=== PATIENT | male | born 1985 | race Caucasian/White ===

== ENCOUNTER 2016-10-17 12:25 | Observation (INO) ==
--- NOTE | 2016-10-17 13:17 | Emergency Department Note ---
Arrival - Arrival Chief Complaint: Abscess Stated Complaint: STAPH, MRSA, BOIL ON STOMACH ED Nursing Triage Note: C/o abscess to right lower abd-onset one week ago. Mode of Arrival: Ambulatory Limitations: No Limitations Source: Patient, RN Notes Reviewed - History of Present Illness HPI Narrative: Patient is a 31-year-old white male who is seen today with an abscess in the right lower quadrant. This is been present for about 1 week. Patient now has a new adjacent smaller abscess of the subcutaneous area which began today. Patient denies chills or fever. He denies nausea vomiting. His last oral intake was this morning about 8 AM. Onset (ago): week(s) (1) Consistency: constant Severity: moderate Allergies/Adverse Reactions: Allergies Allergy/AdvReac Type Severity Reaction Status Date / Time No Known Allergies Allergy Verified 10/17/16 12:29 Home Medications: Home Medications Medication Instructions Recorded Confirmed Type No Known Home Medications [No 10/17/16 10/17/16 History Known Home Medications] Review of System - Review of System 12 point system: reviewed and no additional remarkable complaints except as stated - Review of System Constitutional: Absent: chills, fever Gastrointestinal: Present: abdominal pain. Absent: nausea, vomiting Medical,Surgical,& Family Hx - Medical History Medical History: noncontributory - Social History Smoking Status: Current every day smoker Frequency of Alcohol Use: None Type of Drug Use: Marijuana Exam Vital Signs: Vital Signs Temperature 98.3 F 10/17/16 12:28 Pulse Rate 136 H 10/17/16 12:28 Respiratory Rate 16 10/17/16 12:28 Blood Pressure 124/93 10/17/16 12:28 O2 Sat by Pulse Oximetry 98 10/17/16 12:28 GENERAL: This is a well-nourished well-developed white male, thin in no apparent distress. VITAL SIGNS: Reviewed HEENT: Head is atraumatic and normocephalic. Pupils are equal round react to light. Extraocular movements are intact. Oropharynx is benign with moist mucous membranes. NECK: Neck is soft and supple without tenderness. There are no masses. There is no lymphadenopathy. LUNGS: Lungs are clear to auscultation. Chest rises symmetrically. There is no chest wall tenderness. CV: Heart is regular rate and rhythm without murmurs rubs or gallops. ABDOMEN: Abdomen is soft, tender to palpation the right lower quadrant. Patient has subcutaneous abscess with adjacent smaller absces. There are no abdominal abnormal masses palpated. There is no organomegaly. Bowel sounds are present and active. SKIN: Skin is warm and dry. EXTREMITIES: Patient has full range of motion without tenderness. There is no pedal edema. NEUROLOGIC: Awake alert and oriented 4. Cranial nerves II through XII are grossly intact. Motor is 5 over 5 in all extremities bilaterally. Course - Consultations Consultation #1: Discussed with Dr. Zuleta. Patient will be seen in the emergency department. Time: 13:17 Disposition Clinical Impression: Abdominal wall abscess Case discussed with: patient
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
[2016-10-17] MEDS ORDERED: ONDANSETRON 4 MG/2 ML VIAL IV PRN (13:35)
[2016-10-17] MEDS ORDERED: ACETAMINOPHEN 325 MG TABLET PO PRN (13:35)
[2016-10-17] MEDS ORDERED: HYDROmorphone 2 MG/1 ML VIAL IV PRN (13:35)
[2016-10-17 13:43] LABS: Basophils % 0.6 % (0.0-0.8); Eosinophils # 0.5 10*3/uL (0.0-0.87); Hematocrit 43.4 VOL% (42.0-52.0); Hemoglobin 15.2 GM/DL (14.0-18.0); Immature Granulocytes % 0.2 %; Immature Granulocytes Absolute 0.01 #; Lymphocytes # 2.1 10*3/uL (1.4-4.0); Lymphocytes % 33.3 % (21.2-54.2); Mean Corpuscular Hemoglobin 30 PG (27-34); Mean Corpuscular Volume 86.1 FL (87-102); Mean Platelet Volume 11.7 FL (9.6-12.0); Monocytes # 0.5 10*3/uL (0.11-0.8); Monocytes % 8.6 % (1.7-12.7); Neutrophils % 49.3 % (38.7-73.9); Platelet Count 89 T/CUMM (130-400); Red Blood Count 5.04 MC/CUMM (3.8-5.5); Red Cell Distribution Width 12.2 % (9.3-17.3); White Blood Count 6.2 T/CUMM (4-12)
--- NOTE | 2016-10-17 13:55 | XRay Report ---
Portable chest Date: 10/17/2016 Clinical history: Respiratory preoperative evaluation, abscess of abdominal wall Comparison: 03/14/2008 Technique: Portable AP sitting chest Findings: The heart is normal in size. The lungs are clear with unremarkable mediastinum. No acute osseous findings. Impression: No acute cardiopulmonary pathology identified. PROCEDURE INTERPRETED AT [facility] DEPARTMENT OF RADIOLOGY Final Report Signed by: Dr. Ashlee Valencia
[2016-10-17] MEDS ORDERED: PIPERACILLIN/TAZOBACTAM 3,375 MG VIAL IV ONE (13:58)
[2016-10-17 14:14] LABS: Calcium 8.5 MG/DL (8.5-10.1); Osmolality,Calculated 278.4 MOS/KG (273-304); Potassium 3.8 MMOL/L (3.5-5.1)
[2016-10-17] MEDS ORDERED: METOCLOPRAMIDE 10 MG/2 ML VIAL IV STA (15:40)
[2016-10-17] MEDS ORDERED: FAMOTIDINE 20 MG/2 ML VIAL IV STA (15:40)
[2016-10-17] MEDS ORDERED: FAMOTIDINE 20 MG/2 ML VIAL IV ONE (15:42)
[2016-10-17] MEDS ORDERED: BUPIVACAINE MPF 0.25% /EPI 30 ML VIAL ONE (16:55)
[2016-10-17] MEDS ORDERED: ONDANSETRON 4 MG/2 ML VIAL ONE (17:01)
[2016-10-17] MEDS ORDERED: PROPOFOL 200 MG/20 ML VIAL IV ONE (17:01)
[2016-10-17] MEDS ORDERED: KETOROLAC 30 MG/1 ML VIAL ONE (17:01)
[2016-10-17] MEDS ORDERED: LIDOCAINE 1% 5 ML VIAL ONE (17:01)
--- NOTE | 2016-10-17 17:48 | Anesthesia Post-Op ---
Anesthesia Post OP - Post Ansesthetic Evaluation Patient seen in post op: Yes Resp: within normal limits CV: within normal limits Mental: within normal limits Temp: within normal limits [id number]: within normal limits Nausea and Vomiting: within normal limits Pain: within normal limits
--- NOTE | 2016-10-17 17:48 | Operative Note ---
Date of procedure: 10/17/16 Pre-op diagnosis: Abscesses abdominal wall right lower quadrant Post-op diagnosis: same Procedure: Operative note: Preoperative diagnosis: Masses right lower quadrant abdominal wall probably secondary to abscesses Postop diagnosis: Same Procedure: Excision of masses and extensive debridement of subcutaneous tissue right lower quadrant abdominal wall [address] Zuleta Anesthesia was managed as a care with local Brief history: 31-year-old white male who for 7 days has had an increasing enlarging mass in the right lower quadrant area that ruptured and drained some last night. He now has necrotic wound in this lower part of his abdomen with a new area just above it of unknown etiology. They appear to be abscesses and will bring him here for surgery for further debridement. Procedure: With patient in supine position prepped and draped in a sterile fashion timeout and antibiotics completed approaches area the masses themselves. The larger lower wound measures 2.5 x 1.5 cm with necrotic tissue over the surface of it. The wound in the upper part measures 0.8 x 0.8 cm with a raised central whitish area. With that completed then I infiltrated around with local anesthetic and made an elliptical incision around the larger wound in the lower part of the abdomen excising the necrotic tissue as well as a deep granulating tissue that is in this base. I sent this for pathology took some swabs of the base and then debrided the risks of necrotic tissue out and send it for cultures. We debrided to subcutaneous tissue as well as the skin around the edges of it with a knife and scissors get a good clean wound bed. We now have a wound that is open and is 2 x 1.5 x 1 cm in size. With that completed and I moved up to the upper wound and stuff made elliptical incision around the base of it excised the entire wound and mass out of this abdominal wall getting down to the deep tissue and debriding that deep subcutaneous tissue with the scissors to clean that base. When I finished and I have a wound that is 1 x 1 x 0.5 cm. With that cleaned a use light cauterization and irrigated the wound bed. At this point I felt it simple to leave the wounds open so we packed with some iodoform gauze along with a bulky dressing took patient recovery room. Estimated blood loss about 5 cc Sponge count correct 2 Drains none Complications none Condition stable Anesthesia: MAC, local (0.25% Marcaine with epinephrine mixed [id number] 1% Xylocaine plain) Surgeon / Physician: Dominic Zuleta Estimated blood loss: other (5 cc) Specimens: other (Tissue for pathology and culture) Condition: stable Disposition: floor Results - Labs CBC & BMP: 10/17/16 13:34 10/17/16 13:34 Discharge Plan - Discharge Medications No Action No Known Home Medications [No Known Home Medications] - Follow Up or Referral - Forms/Instructions
[2016-10-17] MEDS ORDERED: MIDAZOLAM 2 MG/2 ML VIAL ONE (17:54)
[2016-10-17] MEDS ORDERED: fentaNYL 100 MCG/2 ML VIAL ONE (17:54)
[2016-10-17] MEDS: DEXTROSE 5% NACL 0.45% 1,000 ML IV SCH (18:22)
[2016-10-17] MEDS: PIPERACILLIN/TAZOBACTAM 3,375 MG in SODIUM CHLORIDE 0.9% 100 ML IV SCH ×2 (21:00→21:12)
[2016-10-17] MEDS: DOCUSATE SODIUM 100 MG CAPSULE PO SCH (21:01)
[2016-10-18] MEDS: PIPERACILLIN/TAZOBACTAM 3,375 MG in SODIUM CHLORIDE 0.9% 100 ML IV SCH (06:30)
[2016-10-18] MEDS: DEXTROSE 5% NACL 0.45% 1,000 ML IV SCH (07:38)
[2016-10-18 07:39] LABS: Basophils % 0.6 % (0.0-0.8); Eosinophils # 0.4 10*3/uL (0.0-0.87); Eosinophils % 8.1 % (0.00-10.9); Hematocrit 38.1 VOL% (42.0-52.0); Immature Granulocytes % 0.2 %; Immature Granulocytes Absolute 0.01 #; Lymphocytes # 1.6 10*3/uL (1.4-4.0); Lymphocytes % 30.2 % (21.2-54.2); Mean Corpuscular HGB Conc 34.1 GM/DL (32-36); Mean Corpuscular Hemoglobin 30 PG (27-34); Mean Corpuscular Volume 87.4 FL (87-102); Mean Platelet Volume 11.7 FL (9.6-12.0); Monocytes # 0.5 10*3/uL (0.11-0.8); Monocytes % 9.4 % (1.7-12.7); Neutrophils # 2.8 10*3/uL (1.4-7.4); Neutrophils % 51.5 % (38.7-73.9); Platelet Count 144 T/CUMM (130-400); Red Blood Count 4.36 MC/CUMM (3.8-5.5); Red Cell Distribution Width 12.3 % (9.3-17.3); White Blood Count 5.4 T/CUMM (4-12)
--- NOTE | 2016-10-18 07:59 | Discharge Summary ---
Hospital Course - Hospital Course Hospital Course: Discharge summary: Discharge diagnosis: Abscess wounds of the right lower quadrant etiology unknown possible insect bite Procedure: Excisional debridement and drainage of abscesses right lower quadrant abdominal wall Brief summary: 31-year-old white male who presented to the emergency room with a 7 day history of swelling in the right lower quadrant. Had 2 wounds 1 with a large necrotic area that apparently had drains the day before. He had a second wound just above that area that was also swollen and indurated. Like to go ahead and take him to surgery at which time we were able to debride these wounds to get him cleaned up to a good clean base at this time. Difficult to know if these look like these could be related to an insect bite of some sort. We started local wound care to him and he should tolerate this well. I think with the good support he has he should be able to go home with daily wound care with bacitracin on him and to follow-up with us in a couple weeks. We will keep him on 2 antibiotics at this time Bactrim and Augmentin as we do not have a final sensitivity on these cultures at this time. Mother pointed out that he has some shotty nodes in the posterior part of his neck bilaterally that are nontender and soft and smooth and I think this is probably reactive in nature and will just watch him for right now. - Time spent with patient Time with patient DS: Less than 30 minutes Diagnosis - Discharge Diagnosis (1) Abdominal wall abscess Status: Chronic Specialty Discharge - Follow Up or Referrals Follow up with: Dominic Zuleta MD [Physician] - 2 Weeks - Speciality Discharge Instructions Surgery Instructions: 1. Good daily care to the wounds. 2. Change the dressing more often as needed if gets hot and sweaty. 3. Never leave the wound open to air. 4. Complete antibiotic Discharge Plan - Discharge Data Disposition: Disch To Home/Self Care Condition at Discharge: Stable Discharge Diet: advance to your usual diet Activity: increase activity as tolerated Hygiene: may shower Weight Bearing at Discharge: full weight bearing Driving: no restrictions Contact your physician if you experience:: fever over 101, Redness or swelling, Bleeding, pain uncontrolled by pain medications Wound / Dressing Care Instructions: Abdominal wounds daily care and as needed if the dressing gets dirty. 1. Shower and wash wounds with Hibiclens. 2. Apply bacitracin ointment to the wounds. 3. Cover with a phone dressing or large Band-Aids - Discharge Medications New Amoxicillin/Clav Tab [Augmentin Tab] 500 mg PO TID #21 tablet Bacitracin Oint 1 applic TOP BID #30 gm Chlorhexidine 4% Soln [Hibiclens] 1 applic TOP DAILY #118 ml Sulfameth/Trimeth 800-160 Tab [Bactrim DS Tab] 1 tablet PO BID #14 tablet Acetaminophen Tab [Tylenol Tab] 650 mg PO Q6H PRN #0 tablet PRN Reason: Pain Mild (1-3) And/Or Fever - Follow Up or Referral - Forms/Instructions Exam - Constitutional Vitals: Period Temp Pulse Resp BP Sys/Berrios Pulse Ox Last 24 Hr 97.8 F-98.3 F 53-136 13-20 81-124/37-93 92-100 General appearance: no acute distress - Head Head exam: Present: normal inspection - ENT ENT exam: Present: normal exam - Neck Neck exam: Present: lymphadenopathy (Bilateral posterior neck soft and pliable with no tenderness) - Respiratory Respiratory exam: Present: clear to auscultation bilaterally - Cardiovascular Cardiovascular exam: Present: regular rate and rhythm - GI/Abdominal GI/Abdominal exam: Present: hypoactive bowel sounds, soft, other (Wounds in the right lower quadrant fairly clean with packing in place no erythematous changes) - Extremities Exam Extremities exam: Present: normal inspection - Back Exam Back exam: Present: normal inspection - Neurological Exam Neurological exam: Present: alert, CN II-XII intact - Psychiatric Psychiatric exam: Present: normal affect, normal mood - Skin Skin exam: Present: normal color, warm, dry Discharge Results Procedures and tests throughout hospitalization: Pending Orders 10/17/16 Abscess Culture Routine Anaerobic Culture Routine Tissue (Biopsy) Culture and GS Routine 10/18/16 04:59 Basic Metabolic Panel IN AM Comp Blood Count Auto Diff IN AM Labs on day of discharge: Labs from last 24 hours 10/18/16 10/17/16 10/17/16 04:59 13:34 13:34 WBC 5.4 6.2 RBC 4.36 5.04 Hgb 13.0 L D 15.2 Hct 38.1 L 43.4 MCV 87.4 86.1 L MCH 30 30 MCHC 34.1 35.0 RDW 12.3 12.2 Plt Count 144 D 89 L MPV 11.7 11.7 Neut % (Auto) 51.5 49.3 Lymph % (Auto) 30.2 33.3 [place] % (Auto) 9.4 8.6 Eos % (Auto) 8.1 8.0 Baso % (Auto) 0.6 0.6 Neut # (Auto) 2.8 3.0 Lymph # (Auto) 1.6 2.1 [place] # (Auto) 0.5 0.5 Eos # (Auto) 0.4 0.5 Baso # (Auto) 0.0 0.0 Total Counted Pending Immature Gran % 0.2 0.2 Nucleated RBC % 0.0 0.0 Immature Gran # 0.01 0.01 Nucleated RBCs # 0.00 0.00 Sodium 140 Potassium 3.8 Chloride 107 Carbon Dioxide 26 Anion Gap 10.8 BUN 13 Creatinine 1.10 GFR Calculation 91 BUN/Creatinine Ratio 11.00 Glucose 107 H Calculated Osmolality 278.4 Calcium 8.5 DS: Provider Consults: 10/17/16 13:39 Consult to Wound Care - [place] [CONS] Routine Reason for Wound Care: Wound Care Management Consult Comment: abscess right abdominal wall 10/17/16 19:45 Consult to Dietitian [CONS] Routine Reason for Dietitian: Other Discharging clinician: Dominic Zuleta MD Expected date of discharge: 10/18/16
[2016-10-18 08:04] VITALS: BP 108/68
[2016-10-18 08:05] LABS: Band Neutrophils 2 % (0-10); Eosinophils 3 % (0-10); Hypochromasia Slight; Lymphocytes 17 % (20-55); Platelet Estimate Adequate; Segmented Neutrophils 61 % (50-85); Total Cells Counted 100
[2016-10-18 08:10] LABS: Calcium 7.7 MG/DL (8.5-10.1); Potassium 3.7 MMOL/L (3.5-5.1)
[2016-10-18] MEDS ORDERED: PANTOPRAZOLE 40 MG TABLET PO SCH (09:00)
[2016-10-18] MEDS: DOCUSATE SODIUM 100 MG CAPSULE PO SCH (09:08)
== END 2016-10-18 10:15 | disposition home or self-care (01) ==
LOC: N.ED 12:25 → N.SDSINP 12:25 → N.ED 14:15 → N.SDSINP 14:22 → UNDODEPER 15:15 → N.3E 15:15 → N.ED 10-18 10:15 → N.3E 10-18 14:44
PROVIDERS: ADMIT Specialist; ATTEND Specialist

== ENCOUNTER 2018-05-07 15:22 | Inpatient (IN) ==
[2018-05-07] MEDS ORDERED: methylPREDNISolone SOD SUC 125 MG/2 ML VIAL IV STA (15:41)
[2018-05-07] MEDS ORDERED: cefTRIAXone 1,000 MG in SODIUM CHLORIDE 0.9% 100 ML IV STA (15:41)
[2018-05-07] MEDS ORDERED: AZITHROMYCIN INJ 500 MG in SODIUM CHLORIDE 0.9% 250 ML IV STA (15:41)
[2018-05-07] MEDS ORDERED: ALBUTEROL/IPRATROPIUM 3 ML NEB RESP TX STA (15:41)
[2018-05-07] MEDS ORDERED: ONDANSETRON 4 MG/2 ML VIAL IV STA (15:41)
[2018-05-07] MEDS ORDERED: SULFAMETHOX/TRIMETHOPRIM 800-160 MG TABLET PO STA (15:44)
[2018-05-07] MEDS ORDERED: ACETAMINOPHEN 500 MG TABLET PO STA (15:48)
[2018-05-07 16:30] LABS: Basophils % 0.2 % (0.0-0.8); Eosinophils % 0.1 % (0.00-10.9); Hematocrit 38.7 VOL% (42.0-52.0); Hemoglobin 13.1 GM/DL (14.0-18.0); Immature Granulocytes % 0.4 %; Immature Granulocytes Absolute 0.05 #; Lymphocytes # 1.6 10*3/uL (1.4-4.0); Lymphocytes % 11.7 % (21.2-54.2); Mean Corpuscular HGB Conc 33.9 GM/DL (32-36); Mean Corpuscular Hemoglobin 29 PG (27-34); Mean Corpuscular Volume 85.4 FL (87-102); Mean Platelet Volume 11.1 FL (9.6-12.0); Monocytes # 1.4 10*3/uL (0.11-0.8); Monocytes % 9.9 % (1.7-12.7); Neutrophils # 10.6 10*3/uL (1.4-7.4); Neutrophils % 77.7 % (38.7-73.9); Platelet Count 207 T/CUMM (130-400); Red Blood Count 4.53 MC/CUMM (3.8-5.5); Red Cell Distribution Width 13.1 % (9.3-17.3); White Blood Count 13.7 T/CUMM (4-12)
[2018-05-07 16:44] LABS: PT Patient Result 10.6 SECS; Partial Thromboplastin Time 30.9 SECS (0-40)
[2018-05-07 16:53] LABS: Alanine Aminotransferase 47 U/L (16-61); Albumin 2.7 G/DL (3.4-5.0); Alkaline Phosphatase 87 U/L (45-117); Aspartate Amino Transferase 27 U/L (0-37); Blood Urea Nitrogen 11 MG/DL (7-18); Calcium 7.9 MG/DL (8.5-10.1); Glucose 113 MG/DL (74-106); Osmolality,Calculated 267.2 MOS/KG (273-304); Potassium 3.6 MMOL/L (3.5-5.1); Sodium 134 MMOL/L (136-145); Total Protein 7.8 G/DL (6.4-8.3); Troponin I < 0.015 NG/ML (0.00-0.045)
[2018-05-07] MEDS ORDERED: ONDANSETRON 4 MG/2 ML VIAL IV PRN (17:24)
[2018-05-07] MEDS ORDERED: guaiFENesin/CODEINE 5 ML LIQUID PO PRN (17:24)
[2018-05-07] MEDS ORDERED: ALBUTEROL 2.5 MG/3 ML NEB RESP TX PRN (17:24)
[2018-05-07 18:52] LABS: Apearance,Urine CLEAR (Clear); Bilirubin,Urine Negative (Negative); Blood, Urine Negative (Negative); Glucose,Urine (UA) Negative (Negative); Ketones,Urine Negative (Negative); Mucus,Urine Few /LPF (Occasional); Nitrite,Urine Negative (Negative); Protein,Urine Negative; RBC,Urine 1 /HPF (0-4); Urine Color Yellow (Yellow); Urine Specific Gravity 1.021 (1.001-1.035); WBC,Urine 1 /HPF (0-6)
[2018-05-07 19:10] LABS: Barbiturates Screen,Urine Negative (Negative); Benzodiazepines Screen,Urine Negative (Negative); Cannabinoid Screen,Urine Negative (Negative); Opiate Screen,Urine Negative (Negative); Phencyclidine Screen,Urine Negative (Negative)
[2018-05-07] MEDS: ALBUTEROL/IPRATROPIUM 3 ML NEB RESP TX SCH (19:58)
[2018-05-08] MEDS: ALBUTEROL/IPRATROPIUM 3 ML NEB RESP TX SCH ×4 (00:23→20:13)
[2018-05-08 06:43] LABS: Basophils % 0.2 % (0.0-0.8); Hematocrit 43.3 VOL% (42.0-52.0); Hemoglobin 14.4 GM/DL (14.0-18.0); Immature Granulocytes % 0.1 %; Immature Granulocytes Absolute 0.01 #; Lymphocytes # 0.7 10*3/uL (1.4-4.0); Lymphocytes % 6.4 % (21.2-54.2); Mean Corpuscular HGB Conc 33.3 GM/DL (32-36); Mean Corpuscular Hemoglobin 29 PG (27-34); Mean Corpuscular Volume 86.3 FL (87-102); Monocytes # 0.3 10*3/uL (0.11-0.8); Monocytes % 3.1 % (1.7-12.7); Neutrophils # 9.5 10*3/uL (1.4-7.4); Neutrophils % 90.2 % (38.7-73.9); Platelet Count 231 T/CUMM (130-400); Red Blood Count 5.02 MC/CUMM (3.8-5.5); Red Cell Distribution Width 13.3 % (9.3-17.3); White Blood Count 10.5 T/CUMM (4-12)
[2018-05-08 07:01] LABS: Albumin 2.7 G/DL (3.4-5.0); Bilirubin,Total 0.7 MG/DL (0.2-1.0); Calcium 8.8 MG/DL (8.5-10.1); Osmolality,Calculated 280.5 MOS/KG (273-304); Potassium 3.9 MMOL/L (3.5-5.1); Total Protein 8.4 G/DL (6.4-8.3)
[2018-05-08] MEDS ORDERED: VANCOMYCIN INJ 1,000 MG in SODIUM CHLORIDE 0.9% 250 ML IV SCH (09:00)
[2018-05-08] MEDS: BENZONATATE 100 MG CAPSULE PO SCH ×3 (09:40→20:46)
[2018-05-08] MEDS ORDERED: VANCOMYCIN INJ 1,250 MG in SODIUM CHLORIDE 0.9% 250 ML IV SCH (10:00)
[2018-05-08] MEDS ORDERED: AZITHROMYCIN INJ 500 MG in SODIUM CHLORIDE 0.9% 250 ML IV SCH (15:00)
[2018-05-08] MEDS ORDERED: cefTRIAXone 1,000 MG in SYRINGE 1 EACH IV SCH (15:00)
[2018-05-09] MEDS: ALBUTEROL/IPRATROPIUM 3 ML NEB RESP TX SCH ×2 (01:47→08:24)
[2018-05-09 05:23] LABS: Basophils % 0.1 % (0.0-0.8); Hematocrit 36.8 VOL% (42.0-52.0); Hemoglobin 12.3 GM/DL (14.0-18.0); Immature Granulocytes % 0.4 %; Immature Granulocytes Absolute 0.07 #; Lymphocytes # 1.1 10*3/uL (1.4-4.0); Lymphocytes % 6.6 % (21.2-54.2); Mean Corpuscular HGB Conc 33.4 GM/DL (32-36); Mean Corpuscular Hemoglobin 29 PG (27-34); Mean Corpuscular Volume 86.8 FL (87-102); Mean Platelet Volume 11.5 FL (9.6-12.0); Monocytes # 0.7 10*3/uL (0.11-0.8); Monocytes % 4.1 % (1.7-12.7); Neutrophils # 14.4 10*3/uL (1.4-7.4); Neutrophils % 88.8 % (38.7-73.9); Platelet Count 227 T/CUMM (130-400); Red Blood Count 4.24 MC/CUMM (3.8-5.5); Red Cell Distribution Width 13.5 % (9.3-17.3); White Blood Count 16.2 T/CUMM (4-12)
[2018-05-09 05:37] LABS: Albumin 2.3 G/DL (3.4-5.0); Bilirubin,Total 0.6 MG/DL (0.2-1.0); Calcium 8.3 MG/DL (8.5-10.1); Osmolality,Calculated 291.8 MOS/KG (273-304); Potassium 3.7 MMOL/L (3.5-5.1); Total Protein 6.7 G/DL (6.4-8.3)
[2018-05-09 08:33] VITALS: BP 115/66
[2018-05-09] MEDS ORDERED: SULFAMETHOX/TRIMETHOPRIM 800-160 MG TABLET PO SCH (09:00)
[2018-05-09] MEDS ORDERED: AZITHROMYCIN 250 MG TABLET PO SCH (09:00)
[2018-05-09] MEDS: BENZONATATE 100 MG CAPSULE PO SCH (09:31)
== END 2018-05-09 10:55 | disposition home or self-care (01) | DRG 195 ==
LOC: N.ED 15:22 → N.EDINP 17:24 → N.5E 19:09
PROVIDERS: ADMIT Internal Medicine; ATTEND Internal Medicine

== ENCOUNTER 2021-06-15 18:42 | Observation (INO) ==
[2021-06-15 19:26] LABS: Basophils % 0.2 % (0.0-0.8); Eosinophils % 0.1 % (0.00-10.9); Hematocrit 41.1 VOL% (42.0-52.0); Hemoglobin 13.6 GM/DL (14.0-18.0); Immature Granulocytes % 0.7 %; Immature Granulocytes Absolute 0.12 #; Lymphocytes # 2.4 10*3/uL (1.4-4.0); Lymphocytes % 13.5 % (21.2-54.2); Mean Corpuscular HGB Conc 33.1 GM/DL (32-36); Mean Corpuscular Volume 83.5 FL (87-102); Mean Platelet Volume 10.9 FL (9.6-12.0); Monocytes % 6.6 % (1.7-12.7); Neutrophils % 78.9 % (38.7-73.9); Platelet Count 213 T/CUMM (130-400); Red Blood Count 4.92 MC/CUMM (3.8-5.5); Red Cell Distribution Width 13.2 % (9.3-17.3); White Blood Count 18.1 T/CUMM (4-12)
[2021-06-15 19:55] LABS: Albumin 2.7 G/DL (3.4-5.0); Bilirubin,Total 0.4 MG/DL (0.20-1.00); Osmolality,Calculated 269.1 MOS/KG (273-304); Potassium 3.9 MMOL/L (3.5-5.1); Total Protein 8.3 G/DL (6.4-8.2)
[2021-06-15] MEDS ORDERED: PIPERACILLIN/TAZOBACTAM 3,375 MG in SODIUM CHLORIDE 0.9% 100 ML IV STA (21:13)
[2021-06-15] MEDS ORDERED: ONDANSETRON 4 MG/2 ML VIAL IV PRN (22:16)
[2021-06-15] MEDS ORDERED: ALBUTEROL/IPRATROPIUM 3 ML NEB RESP TX PRN (22:16)
[2021-06-15] MEDS ORDERED: ALBUTEROL 1.25 MG/3 ML NEB RESP TX PRN (22:59)
[2021-06-15] MEDS: ENOXAPARIN 40 MG/0.4 ML SYRINGE SUBCUT SCH (23:39)
[2021-06-15] MEDS: LEVOFLOXACIN INJ 750 MG/150 ML PREMIX IV SCH (23:43)
[2021-06-16] MEDS: ALBUTEROL/IPRATROPIUM 3 ML NEB RESP TX SCH ×4 (01:30→19:46)
[2021-06-16] MEDS: PIPERACILLIN/TAZOBACTAM 3,375 MG in SODIUM CHLORIDE 0.9% 100 ML IV SCH ×3 (04:46→20:48)
[2021-06-16 06:59] LABS: Basophils % 0.2 % (0.0-0.8); Eosinophils % 0.1 % (0.00-10.9); Hematocrit 39.6 VOL% (42.0-52.0); Immature Granulocytes % 0.6 %; Immature Granulocytes Absolute 0.08 #; Lymphocytes # 2.5 10*3/uL (1.4-4.0); Mean Corpuscular HGB Conc 32.8 GM/DL (32-36); Mean Corpuscular Volume 85.3 FL (87-102); Mean Platelet Volume 11.8 FL (9.6-12.0); Monocytes % 6.5 % (1.7-12.7); Neutrophils % 74.6 % (38.7-73.9); Platelet Count 189 T/CUMM (130-400); Red Blood Count 4.64 MC/CUMM (3.8-5.5); Red Cell Distribution Width 13.3 % (9.3-17.3)
[2021-06-16 07:23] LABS: Albumin 2.1 G/DL (3.4-5.0); Bilirubin,Total 0.5 MG/DL (0.20-1.00); Calcium 8.3 MG/DL (8.5-10.1); Potassium 3.6 MMOL/L (3.5-5.1); Total Protein 7.5 G/DL (6.4-8.2)
[2021-06-16 07:31] LABS: Band Neutrophils 13 % (0-10); Lymphocytes 20 % (20-55); Segmented Neutrophils 61 % (50-85); Total Cells Counted 100
[2021-06-16 07:32] LABS: Anisocytosis Slight; Platelet Estimate Normal
[2021-06-16] MEDS: PANTOPRAZOLE 40 MG TABLET PO SCH (09:23)
[2021-06-16] MEDS: NICOTINE 21 MG/24 HR PATCH TRANSDERM SCH (20:48)
[2021-06-16] MEDS: ENOXAPARIN 40 MG/0.4 ML SYRINGE SUBCUT SCH (21:56)
[2021-06-17] MEDS: LEVOFLOXACIN INJ 750 MG/150 ML PREMIX IV SCH ×2 (00:45→12:56)
[2021-06-17] MEDS: ALBUTEROL/IPRATROPIUM 3 ML NEB RESP TX SCH ×3 (01:00→13:30)
[2021-06-17] MEDS: PIPERACILLIN/TAZOBACTAM 3,375 MG in SODIUM CHLORIDE 0.9% 100 ML IV SCH (04:53)
[2021-06-17] MEDS: PANTOPRAZOLE 40 MG TABLET PO SCH (09:31)
[2021-06-17] MEDS: NICOTINE 21 MG/24 HR PATCH TRANSDERM SCH (09:32)
[2021-06-17 10:03] LABS: Basophils % 0.2 % (0.0-0.8); Eosinophils # 0.1 10*3/uL (0.0-0.87); Eosinophils % 1.8 % (0.00-10.9); Hematocrit 38.2 VOL% (42.0-52.0); Hemoglobin 12.5 GM/DL (14.0-18.0); Immature Granulocytes % 0.3 %; Immature Granulocytes Absolute 0.02 #; Lymphocytes # 1.3 10*3/uL (1.4-4.0); Lymphocytes % 20.4 % (21.2-54.2); Mean Corpuscular HGB Conc 32.7 GM/DL (32-36); Mean Corpuscular Volume 85.5 FL (87-102); Mean Platelet Volume 11.2 FL (9.6-12.0); Monocytes % 7.7 % (1.7-12.7); Neutrophils % 69.6 % (38.7-73.9); Platelet Count 177 T/CUMM (130-400); Red Blood Count 4.47 MC/CUMM (3.8-5.5); Red Cell Distribution Width 13.2 % (9.3-17.3); White Blood Count 6.2 T/CUMM (4-12)
[2021-06-17 10:24] LABS: Anisocytosis 1+; Band Neutrophils 6 % (0-10); Eosinophils 3 % (0-10); Lymphocytes 17 % (20-55); Platelet Estimate Normal; Segmented Neutrophils 66 % (50-85); Total Cells Counted 100
[2021-06-17 13:17] VITALS: BP 127/69
== END 2021-06-17 15:10 | disposition home or self-care (01) ==
LOC: N.EDINP 18:42 → N.ED 18:42 → N.TELEN 23:00
PROVIDERS: ADMIT Internal Medicine; ATTEND Internal Medicine